=== PATIENT | male | born 1990 | race Caucasian/White ===

== ENCOUNTER 2016-10-13 19:08 | Emergency (ER) | payer OTHER ==
--- NOTE | 2016-10-13 19:28 | ED CLINICAL REPORT ---
Clinical Report - Physicians/Mid Levels [facility] [address] [place] [address] 10/13/2016 19:09 Patient: SAVANNA MORRELL Time Seen: 19:13 Oct 13 2016. Arrived- By private vehicle. Historian- patient. HISTORY OF PRESENT ILLNESS Chief Complaint: SKIN RASH. This started 3 days and is still present. It is described as painful. It has not been generalized in location or located on the right upper extremity or over the right lower extremity. (h/o bleeding from left gluteus, no trauma, h/o similar, with prior surgical excision. NO fevers/ chills. Some odor.). REVIEW OF SYSTEMS No fever, chills, cough, hoarseness or headache. No eye irritation, abdominal pain or diarrhea. All systems otherwise negative, except as recorded above. PAST HISTORY Tetanus immunization status is up-to-date. Problems: Hemorrhoids. Sprain. Tetanus Status. Additional Surgeries: Cyst removal . Hemorrhoidectomy. Medications: Ibuprofen Oral. Allergies: No Known Drug Allergy. SOCIAL HISTORY Smoker- current status unknown (e.cig). No alcohol use or drug use. ADDITIONAL NOTES The nursing notes have been reviewed. PHYSICAL EXAM Vital Signs: 10/13/2016 19:16 BP: 124/78. HR: 80. RR: 18. O2 saturation: 100%. Temp: 98.1 F. Appearance: Alert. ENT: Nose normal. Pharynx normal. Neck: Neck supple. CVS: Normal heart rate and rhythm. Heart sounds normal. Respiratory: No respiratory distress. Breath sounds normal. Skin: Skin warm. Erythema. Tender indurated area (left medial cheek). There is warmth and tenderness. Neuro: Oriented X 3. PROGRESS AND PROCEDURES Incision & Drainage of Abscess: Time: 20:07 Oct 13 2016. Time-out completed immediately before the procedure. The abscess is located (left gluteus). Consent was obtained. Local anesthesia provided using 1% lidocaine with epi. The abscess was incised with a #11 surgical blade. A small amount of pus was drained. Cavity was packed with gauze. Course of Care: afebrile, small I/D of an area, unclear how long present, small area of erythema. Patient is stable. Patient/family counseled. Differential Diagnosis: I considered contact dermatitis, atopic dermatitis, seborrheic dermatitis, nummular dermatitis, chronic eczema, bacterial infection, fungal infection, viral etiology, parasitic infection, cancer and connective tissue disease as a possible cause of rash in this patient. This is a partial list of diagnoses considered. Disposition: Discharged. CLINICAL IMPRESSION Single superficial abscess with incision and drainage (Left Gluteus). INSTRUCTIONS (sitz bath remove packing in shower in 48 hours Follow up with your surgeon). Warnings: Further evaluation is necessary. Prescription Medications: Tylenol with Codeine Tylenol #3 (30 mg / 300 mg) : take 1-2 tablets orally every 6 hours as needed for pain. Dispense fifteen (15). No refill. Substitution is permissible. Bactrim DS 800 mg / 160 mg: take 1 tablet orally every 12 hours for 10 days. No refill. Substitution is permissible. Keflex 500 mg: take 1 capsule orally every 8 hours for 10 days. No refill. Substitution is permissible. OTC Medications: Take OTC medications according to label instructions. Available over the counter. Acetaminophen (available over the counter): take according to label instructions. Motrin (available over the counter): take according to label instructions. Follow-up: Follow up with your doctor in three days. (Electronically signed by Jennifer Kimbrough P.A.-C 10/13/2016 20:08)
--- NOTE | 2016-10-13 19:28 | ED NURSING NOTES ---
Clinical Report - Nurses [facility] [address] [place] [address] 10/13/2016 19:09 Patient: SAVANNA MORRELL TRIAGE Triage time 19:16 Oct 13 2016. Acuity: LEVEL 4. Chief Complaint: SKIN PROBLEM. --19:19 Samm Flores R.N. 19:16 10/13/16. BP: 124/78. HR: 80. RR: 18. O2 saturation: 100%. Temp: 98.1 F. Pain level now 04/20. --19:19 Samm Flores R.N. Weight: 111.1 kg stated. Height/Length: 72 inches Per Patient. BMI: 33.2. --19:18 Samm Flores R.N. Medications Ibuprofen Oral. --19:17 Samm Flores R.N. Allergies No Known Drug Allergy. --19:17 Samm Flores R.N. History Arrived by private vehicle. ( Pt hx diagnosed with cyst, excised 4 years ago. 2days ago noticed a sore develop on his buttocks and begin to bleed.). Reported as located on the perirectal area. Onset. (2). SOCIAL HX: Smoker- current status unknown (e cig). No alcohol use or drug use. --19:19 Samm Flores R.N. PROBLEMS: Hemorrhoids. --19:18 Samm Flores R.N. ADDITIONAL SURGERIES: Cyst removal . Hemorrhoidectomy. --19:18 Samm Flores R.N. Interventions ID band on patient. To treatment room. --19:19 Samm Flores R.N. PHYSICAL ASSESSMENT GENERAL / NEURO / PSYCH: Alert. Appears in pain. Oriented X 4. SKIN: Skin is warm. Skin lesion on the perirectal area. --19:20 Samm lFores R.N. NURSING PROGRESS NOTES Monitoring of patient in place. Call light placed in reach. Side rails up x 1. --19:48 Samm Flores R.N. DISPOSITION / DISCHARGE No learning barriers present. Discharge instructions provided and reviewed with the patient. Reviewed medication(s) information. Patient verbalized understanding. Written instructions provided in German. The patient was discharged by the physician assistant director of nursing. He was discharged home. He left the Emergency Department ambulatory and via private vehicle. Patient driving. ( Pt ambulated on discharge, PA drained wound in orquidea rectal area. Pt verbalized understanding of discharge instructions and follow up care.). --19:50 Samm Flores R.N. 19:48 10/13/16. BP: 127/81. HR: 76. RR: 18. O2 saturation: 100%. Temp: 98.1 F. Pain level now 8/10. --19:50 Samm Flores R.N. Departure time: 1945. --19:50 Samm Flores R.N. Locked/Released at 10/14/2016 1:34 by Samm Flores R.N.
--- NOTE | 2016-10-13 19:28 | ED NURSING NOTES ---
Clinical Report - Nurses [facility] [address] [place] [address] 10/13/2016 19:09 Patient: SAVANNA MORRELL TRIAGE Triage time 19:16 Oct 13 2016. Acuity: LEVEL 4. Chief Complaint: SKIN PROBLEM. --19:19 Samm Flores R.N. 19:16 10/13/16. BP: 124/78. HR: 80. RR: 18. O2 saturation: 100%. Temp: 98.1 F. Pain level now 04/20. --19:19 Samm Flores R.N. Weight: 111.1 kg stated. Height/Length: 72 inches Per Patient. BMI: 33.2. --19:18 Samm Flores R.N. Medications Ibuprofen Oral. --19:17 Samm Flores R.N. Allergies No Known Drug Allergy. --19:17 Samm Flores R.N. History Arrived by private vehicle. ( Pt hx diagnosed with cyst, excised 4 years ago. 2days ago noticed a sore develop on his buttocks and begin to bleed.). Reported as located on the perirectal area. Onset. (2). SOCIAL HX: Smoker- current status unknown (e cig). No alcohol use or drug use. --19:19 Samm Flores R.N. PROBLEMS: Hemorrhoids. --19:18 Samm Flores R.N. ADDITIONAL SURGERIES: Cyst removal . Hemorrhoidectomy. --19:18 Samm Flores R.N. Interventions ID band on patient. To treatment room. --19:19 Samm Flores R.N. PHYSICAL ASSESSMENT GENERAL / NEURO / PSYCH: Alert. Appears in pain. Oriented X 4. SKIN: Skin is warm. Skin lesion on the perirectal area. --19:20 Samm Flores R.N. NURSING PROGRESS NOTES Monitoring of patient in place. Call light placed in reach. Side rails up x 1. --19:48 Samm Flores R.N. DISPOSITION / DISCHARGE No learning barriers present. Discharge instructions provided and reviewed with the patient. Reviewed medication(s) information. Patient verbalized understanding. Written instructions provided in Wolof. The patient was discharged by the physician butcher's assistant. He was discharged home. He left the Emergency Department ambulatory and via private vehicle. Patient driving. ( Pt ambulated on discharge, PA drained wound in orquidea rectal area. Pt verbalized understanding of discharge instructions and follow up care.). --19:50 Samm Flores R.N. 19:48 10/13/16. BP: 127/81. HR: 76. RR: 18. O2 saturation: 100%. Temp: 98.1 F. Pain level now 8/10. --19:50 Smam Flores R.N. Departure time: 1945. --19:50 Samm Flores R.N. Locked/Released at 10/14/2016 1:34 by Samm Flores R.N.
--- NOTE | 2016-10-14 01:34 | ED MED RECONCILIATION SUMMARY ---
Patient: SAVANNA MORRELL Medication Reconciliation Report [facility] VisitID: [id number] [address] [place] [address] 26y, M Registration Date/Time: 10/13/2016 Weight: 111.1 kg Height/Length: 72 in. BMI: 33.2 ALLERGIES: No Known Drug Allergy The patient's Home Medications are listed below: THE FOLLOWING MEDICATIONS NEED TO BE RECONCILED: Ibuprofen Oral The source(s) of the original Home Medication information: Not obtained. The following Medications were given to the patient in the Emergency Department: None. The following Medications were prescribed to the patient: Take OTC medications according to label instructions. Available over the counter. -- Jennifer Kimbrough, P.A.-C Acetaminophen (available over the counter): take according to label instructions. -- Jennifer Kimbrough, P.A.-C Motrin (available over the counter): take according to label instructions. -- Jennfier Kimbrough P.A.-C Tylenol with Codeine Tylenol #3 (30 mg / 300 mg) : take 1-2 tablets orally every 6 hours as needed for pain. Dispense fifteen (15). No refill. Substitution is permissible. -- Jennifer Kimbrough, P.A.-C Bactrim DS 800 mg / 160 mg: take 1 tablet orally every 12 hours for 10 days. No refill. Substitution is permissible. -- Jennifer Kimbrough, P.A.-C Keflex 500 mg: take 1 capsule orally every 8 hours for 10 days. No refill. Substitution is permissible. -- Jennifer Kimbrough, P.A.-C
--- NOTE | 2016-10-14 01:34 | ED MAR SUMMARY ---
..... Medication Administration Record [facility] [address], [place] [id number] Patient: SAVANNA MORRELL Visit ID: [id number] 26y, M Weight: 111.1 kg Height/Length: 72 in BMI: 33.2 ALLERGIES: No Known Drug Allergy
--- NOTE | 2016-10-14 01:34 | ED MAR SUMMARY ---
..... Medication Administration Record [facility] [address] [place], [place] [id number] Patient: SAVANNA MORRELL Visit ID: [id number] 26y, M Weight: 111.1 kg Height/Length: 72 in BMI: 33.2 ALLERGIES: No Known Drug Allergy
--- NOTE | 2016-10-14 01:34 | ED MED RECONCILIATION SUMMARY ---
Patient: SAVANNA MORRELL Medication Reconciliation Report [facility] VisitID: [id number] [address] [place] [address] 26y, M Registration Date/Time: 10/13/2016 Weight: 111.1 kg Height/Length: 72 in. BMI: 33.2 ALLERGIES: No Known Drug Allergy The patient's Home Medications are listed below: THE FOLLOWING MEDICATIONS NEED TO BE RECONCILED: Ibuprofen Oral The source(s) of the original Home Medication information: Not obtained. The following Medications were given to the patient in the Emergency Department: None. The following Medications were prescribed to the patient: Take OTC medications according to label instructions. Available over the counter. -- Jennifer Kimbrough, P.A.-C Acetaminophen (available over the counter): take according to label instructions. -- Jennifer Kimbrough, P.A.-C Motrin (available over the counter): take according to label instructions. -- Jennifer Kimbrough P.A.-C Tylenol with Codeine Tylenol #3 (30 mg / 300 mg) : take 1-2 tablets orally every 6 hours as needed for pain. Dispense fifteen (15). No refill. Substitution is permissible. -- Jennifer Kimbrough, P.A.-C Bactrim DS 800 mg / 160 mg: take 1 tablet orally every 12 hours for 10 days. No refill. Substitution is permissible. -- Jennifer Kimbrough, P.A.-C Keflex 500 mg: take 1 capsule orally every 8 hours for 10 days. No refill. Substitution is permissible. -- Jennifer Kimbrough, P.A.-C
--- NOTE | 2016-10-14 01:34 | ED DISCHARGE INSTRUCTIONS ---
Patient: SAVANNA MORRELL General Instructions [facility] VisitID: [id number] [place] [address] 26y, M Registration Date/Time: 10/13/2016 Single superficial abscess with incision and drainage (Left Gluteus). INSTRUCTIONS (sitz bath remove packing in shower in 48 hours Follow up with your surgeon). Warnings: Further evaluation is necessary. Prescription Medications: Tylenol with Codeine Tylenol #3 (30 mg / 300 mg) : take 1-2 tablets orally every 6 hours as needed for pain. Dispense fifteen (15). No refill. Substitution is permissible. Bactrim DS 800 mg / 160 mg: take 1 tablet orally every 12 hours for 10 days. No refill. Substitution is permissible. Keflex 500 mg: take 1 capsule orally every 8 hours for 10 days. No refill. Substitution is permissible. OTC Medications: Take OTC medications according to label instructions. Available over the counter. Acetaminophen (available over the counter): take according to label instructions. Motrin (available over the counter): take according to label instructions. Follow-up: Follow up with your doctor in three days. ADDITIONAL INFORMATION Abscess [Incision & Drainage] An abscess (sometimes called a boil) occurs when bacteria get trapped under the skin and begin to grow. Pus forms inside the abscess as the body responds to the bacteria. An abscess can occur with an insect bite, ingrown hair, blocked oil gland, pimple, cyst, or puncture wound. Treatment of your abscess has required an incision to drain the pus. If the abscess pocket was large, a gauze packing may have been inserted. This will need to be removed and possibly replaced on your next visit. Antibiotics are not required in the treatment of a simple abscess, unless the infection is spreading into the skin around the wound (known as cellulitis). Healing of the wound will take about one to two weeks depending on the size of the abscess. Healthy tissue will grow from the bottom and sides of the opening until it seals over. Home Care: The wound may drain for the first two days. Cover the wound with a clean dry dressing. If the dressing becomes soaked with blood or pus, change it. If a gauze packing was placed inside the abscess cavity, you may be advised to remove it yourself. You may do this in the shower. Once the packing is removed, you should wash the area in the shower or bath 3 to 4 times a day, until the skin opening has closed. If you were prescribed antibiotics, take them as directed until they are all gone. You may use acetaminophen (Tylenol) or ibuprofen (Motrin, Advil) to control pain, unless another pain medicine was prescribed. [ NOTE: If you have liver disease or ever had a stomach ulcer, talk with your doctor before using these medicines.] Follow Up with your doctor as advised by our staff. If a gauze packing was inserted in your wound, it should be removed in 1-2 days. Check your wound every day for the signs of worsening infection listed below. Get Prompt Medical Attention if any of the following occur: Increasing redness or swelling Red streaks in the skin leading away from the wound Increasing local pain or swelling Continued pus draining from the wound two days after treatment Fever of 100.4F (38C) or higher, or as directed by your healthcare provider Acetaminophen, Codeine Phosphate Oral tablet What is this medicine? ACETAMINOPHEN; CODEINE (a set a TSOHIA milan fen; KOE camelia) is a pain reliever. It is used to treat mild to moderate pain. How should I use this medicine? Take this medicine by mouth with a full glass of water. Follow the directions on the prescription label. If the medicine upsets your stomach, take the medicine with food or milk. Do not take more medicine than you are told to take. Talk to your computational geneticist regarding the use of this medicine in children. Special care may be needed. What side effects may I notice from receiving this medicine? Side effects that you should report to your doctor or health care taker as soon as possible: allergic reactions like skin rash, itching or hives, swelling of the face, lips, or tongue breathing difficulties, wheezing confusion light headedness or fainting spells severe stomach pain yellowing of the skin or the whites of the eyes Side effects that usually do not require medical attention (report to your doctor or health care taker if they continue or are bothersome): dizziness drowsiness nausea, vomiting What may interact with this medicine? alcohol antihistamines benztropine drugs for bladder problems like solifenacin, trospium, oxybutynin, tolterodine, hycosamine, and methscopolamine drugs for breathing problems like ipratropium and tiotropium drugs for certain stomach or intestine problems like propantheline, homatropine methylbromide, glycopyrrolate, atropine, belladonna, and dicyclomine medicines for depression, anxiety, or psychotic disturbances medicines for sleep muscle relaxants naltrexone narcotic medicines (opiates) for pain phenothiazines like perphenazine, thioridazine, chlorpromazine, mesoridazine, fluphenazine, prochlorperazine, promazine, trifluoperazine scopolamine tramadol trihexyphenidyl What if I miss a dose? If you miss a dose, take it as soon as you can. If it is almost time for your next dose, take only that dose. Do not take double or extra doses. Where should I keep my medicine? Keep out of the reach of children. This medicine can be abused. Keep your medicine in a safe place to protect it from theft. Do not share this medicine with anyone. Selling or giving away this medicine is dangerous and against the law. Store at room temperature between 15 and 30 degrees C (59 and 86 degrees F). Protect from light. Keep container tightly closed. Throw away any unused medicine after the expiration date. Discard unused medicine and used packaging carefully. Pets and children can be harmed if they find used or lost packages. What should I tell my health care provider before I take this medicine? They need to know if you have any of these conditions: brain tumor Crohn's disease, inflammatory bowel disease, or ulcerative colitis drink more than 3 alcohol containing drinks per day drug abuse or addiction head injury heart or circulation problems kidney disease or problems going to the bathroom liver disease lung disease, asthma, or breathing problems an unusual or allergic reaction to acetaminophen, codeine, salicylates, other opioid analgesics, other medicines, foods, dyes, or preservatives or trying to get breast-feeding What should I watch for while using this medicine? Tell your doctor or health care taker if your pain does not go away, if it gets worse, or if you have new or a different type of pain. You may develop tolerance to the medication. Tolerance means that you will need a higher dose of the medication for pain relief. Tolerance is normal and is expected if you take the medicine for a long time. Do not suddenly stop taking your medicine because you may develop a severe reaction. Your body becomes used to the medicine. This does NOT mean you are addicted. Addiction is a behavior related to getting and using a drug for a non medical reason. If you have pain, you have a medical reason to take pain medicine. Your doctor will tell you how much medicine to take. If your doctor wants you to stop the medicine, the dose will be slowly lowered over time to avoid any side effects. You may get drowsy or dizzy. Do not drive, use machinery, or do anything that needs mental alertness until you know how this medicine affects you. Do not stand or sit up quickly, especially if you are an older patient. This reduces the risk of dizzy or fainting spells. Alcohol may interfere with the effect of this medicine. Avoid alcoholic drinks. There are different types of narcotic medicines (opiates) for pain. If you take more than one type at the same time, you may have more side effects. Give your health care provider a list of all medicines you use. Your doctor will tell you how much medicine to take. Do not take more medicine than directed. Call emergency for help if you have problems breathing. The medicine will cause constipation. Try to have a bowel movement at least every 2 to 3 days. If you do not have a bowel movement for 3 days, call your doctor or health care taker. Do not take Tylenol (acetaminophen) or medicines that have acetaminophen with this medicine. Too much acetaminophen can be very dangerous. Many nonprescription medicines contain acetaminophen. Always read the labels carefully to avoid taking more acetaminophen. Immediately call your physician or get emergency help if you are breast-feeding and your baby is sleepier than usual, is limp, or has difficulty or breathing. Sulfamethoxazole, Trimethoprim Oral tablet What is this medicine? SULFAMETHOXAZOLE; TRIMETHOPRIM or SMX-TMP (suhl fuh meth OK liliya zohl; trye METH oh prim) is a combination of a sulfonamide antibiotic and a second antibiotic, trimethoprim. It is used to treat or prevent certain kinds of bacterial infections. It will not work for colds, flu, or other viral infections. How should I use this medicine? Take this medicine by mouth with a full glass of water. Follow the directions on the prescription label. Take your medicine at regular intervals. Do not take it more often than directed. Do not skip doses or stop your medicine early. Talk to your computational geneticist regarding the use of this medicine in children. Special care may be needed. This medicine has been used in children as young as 2 months of age. What side effects may I notice from receiving this medicine? Side effects that you should report to your doctor or health care taker as soon as possible: allergic reactions like skin rash or hives, swelling of the face, lips, or tongue breathing problems fever or chills, sore throat irregular heartbeat, chest pain joint or muscle pain pain or difficulty passing urine red pinpoint spots on skin redness, blistering, peeling or loosening of the skin, including inside the mouth unusual bleeding or bruising unusually weak or tired yellowing of the eyes or skin Side effects that usually do not require medical attention (report to your doctor or health care taker if they continue or are bothersome): diarrhea dizziness headache loss of appetite nausea, vomiting nervousness What may interact with this medicine? Do not take this medicine with any of the following medications: aminobenzoate potassium dofetilide metronidazole This medicine may also interact with the following medications: LAINE inhibitors like benazepril, enalapril, lisinopril, and ramipril cyclosporine digoxin diuretics indomethacin medicines for diabetes methenamine methotrexate phenytoin potassium supplements pyrimethamine sulfinpyrazone tricyclic antidepressants warfarin What if I miss a dose? If you miss a dose, take it as soon as you can. If it is almost time for your next dose, take only that dose. Do not take double or extra doses. Where should I keep my medicine? Keep out of the reach of children. Store at room temperature between 20 to 25 degrees C (68 to 77 degrees F). Protect from light. Throw away any unused medicine after the expiration date. What should I tell my health care provider before I take this medicine? They need to know if you have any of these conditions: anemia asthma being treated with anticonvulsants if you frequently drink alcohol containing drinks kidney disease liver disease low level of folic acid or rzrzsae-0-vrakuvhym dehydrogenase poor nutrition or malabsorption porphyria severe allergies thyroid disorder an unusual or allergic reaction to sulfamethoxazole, trimethoprim, sulfa drugs, other medicines, foods, dyes, or preservatives or trying to get breast-feeding What should I watch for while using this medicine? Tell your doctor or health care taker if your symptoms do not improve. Drink several glasses of water a day to reduce the risk of kidney problems. Do not treat diarrhea with over the counter products. Contact your doctor if you have diarrhea that lasts more than 2 days or if it is severe and watery. This medicine can make you more sensitive to the sun. Keep out of the sun. If you cannot avoid being in the sun, wear protective clothing and use a sunscreen. Do not use sun lamps or tanning beds/booths. You have been given the following additional information: Abscess, Incision And Drainage Acetaminophen, Codeine Phosphate Oral tablet Sulfamethoxazole, Trimethoprim Oral tablet (Electronically signed by Jennifer Kimbrough P.A.-C 10/13/2016 20:08)
== END 2016-10-13 19:40 | disposition home or self-care (01) ==
LOC: ED SRH 19:08
DX: L02.31 Cutaneous abscess of buttock (principal)

== ENCOUNTER 2017-01-23 12:04 | Emergency (ER) | payer OTHER ==
--- NOTE | 2017-01-23 13:19 | ED CLINICAL REPORT ---
Clinical Report - Physicians/Mid Levels [facility] [address] [place] [address] 01/23/2017 12:06 Patient: SAVANNA MORRELL Time Seen: 12:33 Jan 23 2017. Arrived- By private vehicle. Historian- patient. HISTORY OF PRESENT ILLNESS Chief Complaint: RECTAL BLEEDING. 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 PAST HISTORY Abscess. Hemorrhoids. Sprain. Tetanus Status. --12:17 Babar Dong RÁngelN. ADDITIONAL SURGERIES: Pilonidal Cyst removal . Hemorrhoidectomy. Medications: None. Allergies: No Known Drug Allergy. SOCIAL HISTORY Heavy tobacco smoker (cigarette)- 1 pack per day. No alcohol use or drug use. CLINICAL IMPRESSION Left AMA. (Electronically signed by Vincenzo Meyers MD 01/24/2017 20:50)
--- NOTE | 2017-01-23 13:19 | ED ORDER SUMMARY ---
..... Patient: SAVANNA MORRELL OrderSheet [facility] VisitID: [id number] [address] [place] [address] 27y, M Registration Date/Time: 01/23/2017 ORDER SHEET Weight: 99.7 kg (stated) Allergies: No Known Drug Allergy GENERAL ORDERS: CBC w Diff Urgent (13:01/23/2017 Arnoldo PANTOJA) (Ack 13:11 LNations ER Tech1) (Cancelled: Patient Codsjsp28:30 JBoardley R.N.) CMP Urgent (13:01/23/2017 Arnoldo PANTOJA) (Ack 13:11 LNations ER Tech1) (Cancelled: Patient Wbszugf39:30 JBoardlemagdalena R.N.) PCT (Procalcitonin) Urgent (13:01/23/2017 Arnoldo PANTOJA) (Ack 13:11 LNations ER Tech1) (Cancelled: Patient Fcfbeby48:30 VALERI[address]ley R.N.) CT Abd/Pel w Cont (No) (N/A) (to include the rectum and anus and associated ssoft tissues. ) Urgent (13:01/23/2017 Arnoldo PANTOJA) (Ack 13:11 LNations ER Tech1) (Cancelled: Patient Left13:25 Hailee) MEDICATION ORDERS: IV FLUIDS: IV NS : initial bolus none -, then 250 mL/hr for 4h (NOW); Routine (13:01/23/2017 Arnoldo PANTOJA) (Ack 13:12 Daylin R.N.) (Cancelled: Patient Ojienbj22:30 JBoardley R.N.) ORDER SHEET NOTES: [Electronically signed by Babar Dong R.N. (14:31 01/23/2017)] [Electronically signed by Vincenzo Meyers MD (20:50 01/24/2017)] [Electronically locked/signed by Babar Dong R.N. (14:31 01/23/2017)]
--- NOTE | 2017-01-23 13:19 | ED CLINICAL REPORT ---
Clinical Report - Physicians/Mid Levels [facility] [address] [place] [address] 01/23/2017 12:06 Patient: SAVANNA MORRELL Time Seen: 12:33 Jan 23 2017. Arrived- By private vehicle. Historian- patient. HISTORY OF PRESENT ILLNESS Chief Complaint: RECTAL BLEEDING. 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 PAST HISTORY Abscess. Hemorrhoids. Sprain. Tetanus Status. --12:17 Babar Dong RÁngelN. ADDITIONAL SURGERIES: Pilonidal Cyst removal . Hemorrhoidectomy. Medications: None. Allergies: No Known Drug Allergy. SOCIAL HISTORY Heavy tobacco smoker (cigarette)- 1 pack per day. No alcohol use or drug use. CLINICAL IMPRESSION Left AMA. (Electronically signed by Vincenzo Meyers MD 01/24/2017 20:50)
--- NOTE | 2017-01-23 13:19 | ED NURSING NOTES ---
Clinical Report - Nurses [facility] [address] [place] [address] 01/23/2017 12:06 Patient: SAVANNA MORRELL TRIAGE Triage time 12:13. Acuity: LEVEL 4. Chief Complaint: RECTAL PAIN. 12:13 01/23/17. 12:13 01/23/17. Alert. No acute distress. ( Pt states he has a cyst in the rectal area, this was I and D around October. Pt presents today with an enlargement of this cyst or it is reoccurring. Pt also states that he might have blood in his stool. Pt was suppose to follow up with his PCP regarding this and never did.). SEPSIS SCREEN: Sepsis Screen. Negative (no infection suspected/documented). JAME COMA SCORE: Jaem Coma Scale: 15- eyes open spontaneously (4); best verbal response- oriented x 4 (5); best motor response- obeys commands (6). --12:18 Babar Dong R.N. 12:12 01/23/17. BP: 127/78. HR: 92. RR: 18. O2 saturation: 99% on room air. Temp: 98 F. --12:18 Babar Dong R.N. Weight: 99.7 kg stated. Height/Length: 71 inches Per Patient. BMI: 30.7. --12:15 Babar Dong R.N. Medications None. --12:16 Babar Dong R.N. Medication/allergy information source: the patient. --12:18 Babar Dong R.N. Allergies No Known Drug Allergy. --12:16 Babar Dong R.N. History Arrived by private vehicle. Historian: patient. Unaccompanied. Primary physician (SHAYNA). 12:13 01/23/17. Treatment PHLEBOTOMY DIRECTOR: None. PAST MEDICAL HX: Immunizations: up-to-date. SOCIAL HX: Current every day heavy tobacco smoker (cigarette)- 1 pack per day. Never smoker. No alcohol use or drug use. No infectious disease exposure. ABUSE ASSESSMENT: No report of abuse. FALL RISK ASSESSMENT: Fall risk assessment completed. No fall risk identified. NUTRITIONAL RISK ASSESSMENT: The nutritional risk assessment revealed no deficiencies. FUNCTIONAL ASSESSMENT: Functional assessment: no impairments noted. LEARNING NEEDS ASSESSMENT: The learning needs assessment revealed no barriers. SKIN INTEGRITY ASSESSMENT: Skin integrity risk assessment completed. No skin integrity risk identified. --12:18 Babar Dong R.N. PROBLEMS: Abscess. Hemorrhoids. Sprain. Tetanus Status. --12:17 Babar Dong R.N. ADDITIONAL SURGERIES: Cyst removal . Hemorrhoidectomy. --12:17 Babar Dong R.N. Assessment 12:01/23/17. --12:18 Babar Dong R.N. Interventions 12:01/23/17. 12:01/23/17. ID and allergy band on patient. To treatment room. --12:18 Babar Dong R.N. PHYSICAL ASSESSMENT 12:17 01/23/17. Ambulatory to room. GENERAL / NEURO / PSYCH: Alert. Oriented X 4. Appears in no acute distress. RESPIRATORY: Respirations not labored. CVS: Capillary refill less than 2 seconds. SKIN: Skin is warm and dry. --12:17 Babar Dong R.N. NURSING PROGRESS NOTES 12:01/23/17. Call light placed in reach. Side rails up x 2. Bed placed in lowest position. Brakes of bed on. Patient ready for evaluation- chart flagged and notification provided. --12:18 Babar Dong R.N. 12:18 01/23/17. The plan of care for this patient has been created. Patient gowned. Head of bed elevated. --12:18 Babar Dong R.N. DISPOSITION / DISCHARGE 13:20 01/23/17. The patient left the Emergency Department against medical advice and without completion of treatment; patient was unaccompanied. The patient appears to be alert, oriented x4, coherent and in no acute distress. The patient notified the ED staff prior to leaving the department and stated is leaving the ED due to personal reasons (Has to drop off car to family, pt states he will be back in 15 minutes). Notified the ED physician and charge nurse of patient departure. Prior to leaving the ED, he was advised to stay for completion of treatment and return if needed. He was informed of the risks of leaving and verbalized understanding of these risks. Patient signed form prior to leaving. He left the Emergency Department ambulatory and via private vehicle. --13:20 Babar Dong R.N. 13:01/23/17. --13:21 Babar Dong R.N. 13:20 01/23/17. BP: unable to obtain. HR: unable to obtain. RR: unable to obtain. O2 saturation: unable to obtain. Temp: unable to obtain. Additional comments: Refused DC vitals stating he has to go. --13:21 Babar Dong R.N. 13:01/23/17. Departure time: :. --13:21 Babar Dong R.N. Locked/Released at 01/23/2017 14:31 by Babar Dong R.N.
--- NOTE | 2017-01-23 13:19 | ED ORDER SUMMARY ---
..... Patient: SAVANNA MORRELL OrderSheet [facility] VisitID: [id number] [address] [place] [address] 27y, M Registration Date/Time: 01/23/2017 ORDER SHEET Weight: 99.7 kg (stated) Allergies: No Known Drug Allergy GENERAL ORDERS: CBC w Diff Urgent (13:01/23/2017 Arnoldo PANTOJA) (Ack 13:11 LNations ER Tech1) (Cancelled: Patient Vckdgwk81:30 JBoardley R.N.) CMP Urgent (13:01/23/2017 Arnoldo PANTOJA) (Ack 13:11 LNations ER Tech1) (Cancelled: Patient Ewebwfd31:30 JBoardlemagdalena R.N.) PCT (Procalcitonin) Urgent (13:01/23/2017 Arnoldo PANTOJA) (Ack 13:11 LNations ER Tech1) (Cancelled: Patient Rrstfhj58:30 VALERIY[address]ley R.N.) CT Abd/Pel w Cont (No) (N/A) (to include the rectum and anus and associated ssoft tissues. ) Urgent (13:01/23/2017 Arnoldo PANTOJA) (Ack 13:11 LNations ER Tech1) (Cancelled: Patient Left13:25 Hailee) MEDICATION ORDERS: IV FLUIDS: IV NS : initial bolus none -, then 250 mL/hr for 4h (NOW); Routine (13:01/23/2017 Arnoldo PANTOJA) (Ack 13:12 Daylin R.N.) (Cancelled: Patient Iyovcrr16:30 JBoardley R.N.) ORDER SHEET NOTES: [Electronically signed by Babar Dong R.N. (14:31 01/23/2017)] [Electronically signed by Vincenzo Meyers MD (20:50 01/24/2017)] [Electronically locked/signed by Babar Dong R.N. (14:31 01/23/2017)]
--- NOTE | 2017-01-24 20:50 | ED DISCHARGE INSTRUCTIONS ---
Patient: SAVANNA MORRELL General Instructions [facility] VisitID: [id number] [address] [place] [address] 27y, M Registration Date/Time: 01/23/2017 Left AMA. (Electronically signed by Vincenzo Meyers MD 01/24/2017 20:50)
--- NOTE | 2017-01-24 20:50 | ED MAR SUMMARY ---
..... Medication Administration Record [facility] [address] [place], [place] [id number] Patient: SAVANNA MORRELL Visit ID: [id number] 27y, M Weight: 99.7 kg Height/Length: 71 in BMI: 30.7 ALLERGIES: No Known Drug Allergy
--- NOTE | 2017-01-24 20:50 | ED MED RECONCILIATION SUMMARY ---
Patient: SAVANNA MORRELL Medication Reconciliation Report [facility] VisitID: [id number] [address] [address] 27y, M Registration Date/Time: 01/23/2017 Weight: 99.7 kg Height/Length: 71 in. BMI: 30.7 ALLERGIES: No Known Drug Allergy The patient's Home Medications are listed below: NONE. The source(s) of the original Home Medication information: patient The following Medications were given to the patient in the Emergency Department: None. The following Medications were prescribed to the patient: None.
--- NOTE | 2017-01-24 20:50 | ED MED RECONCILIATION SUMMARY ---
Patient: SAVANNA MORRELL Medication Reconciliation Report [facility] VisitID: [id number] [address] [place] [address] 27y, M Registration Date/Time: 01/23/2017 Weight: 99.7 kg Height/Length: 71 in. BMI: 30.7 ALLERGIES: No Known Drug Allergy The patient's Home Medications are listed below: NONE. The source(s) of the original Home Medication information: patient The following Medications were given to the patient in the Emergency Department: None. The following Medications were prescribed to the patient: None.
--- NOTE | 2017-01-24 20:50 | ED DISCHARGE INSTRUCTIONS ---
Patient: SAVANNA MORRELL General Instructions [facility] VisitID: [id number] [address] [place] [address] 27y, M Registration Date/Time: 01/23/2017 Left AMA. (Electronically signed by Vincenzo Meyers MD 01/24/2017 20:50)
--- NOTE | 2017-01-24 20:50 | ED MAR SUMMARY ---
..... Medication Administration Record [facility] [address] [place], [place] [id number] Patient: SAVANNA MORRELL Visit ID: [id number] 27y, M Weight: 99.7 kg Height/Length: 71 in BMI: 30.7 ALLERGIES: No Known Drug Allergy
== END 2017-01-23 13:21 | disposition left against medical advice (07) ==
LOC: ED SRH 12:04
DX: Z53.21 Procedure and treatment not carried out due to patient leaving prior to being seen by health care provider (principal)
CPT/HCPCS: 91585; 93004; 95059

== ENCOUNTER 2017-01-23 13:48 | Emergency (ER) | payer OTHER ==
--- NOTE | 2017-01-23 15:34 | DIAGNOSTIC IMAGING REPORT ---
PROCEDURE: CT ABD/PELVIS WITH CONTRAST CLINICAL INDICATION: Perirectal pain. Initial encounter. TECHNIQUE: 125 ml of Isovue 300 were injected intravenously and axial images were obtained of the entire abdomen and pelvis with sagittal and coronal reformations. COMPARISON: None. FINDINGS: ABDOMEN: Lung bases are clear. Heart size is normal. Contracted gallbladder. Liver, pancreas, spleen, adrenal glands and kidneys are normal. Normal abdominal aorta. Nonspecific bowel gas pattern. PELVIS: 2.3 x 1.2 cm subcutaneous soft tissue density along the medial aspect of the left buttock at the level of the coccyx , with a sinus tract extending anteriorly toward the tip of the coccyx. Normal prostate and bladder. Normal appendix. Nonspecific bowel gas pattern. Mild left inguinal adenopathy. Bones are unremarkable. IMPRESSION: 1. 2.3 x 1.2 cm subcutaneous inflammatory mass along the medial aspect of the left buttock suggestive of a phlegmon with a sinus tract extending anteriorly. 2. Results discussed with Dr. Meyers All CT scans at this facility use dose modulation, iterative reconstruction, and/or weight-based dosing when appropriate to reduce radiation dose to as low as reasonably achievable.
--- NOTE | 2017-01-23 18:23 | ED ORDER SUMMARY ---
..... Patient: SAVANNA MORRELL OrderSheet [facility] VisitID: [id number] [address] [place] [address] 27y, M Registration Date/Time: 01/23/2017 ORDER SHEET Weight: 99.7 kg (stated) Allergies: No Known Drug Allergy GENERAL ORDERS: CBC w Diff Urgent (14:00 01/23/2017 Arnoldo PANTOJA) (Ack 14:03 Hailee) (14:10 JBoardley R.N.) CMP Urgent (14:01/23/2017 Arnoldo PANTOJA) (Ack 14:03 Hailee) (14:10 JBoardley R.N.) PCT (Procalcitonin) Urgent (14:01/23/2017 Arnoldo PANTOAJ) (Ack 14:03 Hailee) (14:10 JBoardley R.N.) CT Abd/Pel w Cont (No) (N/A) (go thru rectum anus and orquidea-rectal soft tissue. ) Urgent (14:02 01/23/2017 Arnoldo PANTOJA) (Ack 14:03 Hailee) (14:56 JBoardley R.N.) CRP Urgent (14:04 01/23/2017 Arnoldo PANTOJA) (Ack 14:05 Hailee) (14:10 JBoardley R.N.) MEDICATION ORDERS: IV FLUIDS: IV NS : initial bolus none -, then 250 mL/hr for 4h (NOW); Routine (14:00 01/23/2017 Arnoldo PANTOJA) (Ack 14:03 VALERIYoardley R.N.) (14:10 JBoardley R.N.) Vancomycin IV 25 mg/kg (NOW) (15:40 01/23/2017 Arnoldo PANTOJA) (Ack 15:43 Wenyd R.N.) (16:31 Daylin R.N.) Invanz IV 1 gm (NOW) (15:40 01/23/2017 Arnoldo PANTOJA) (Ack 15:43 Wendy R.N.) (16:13 Wendy R.N.) Demerol IV 12.5 mg (NOW) (15:47 01/23/2017 Arnoldo PANTOJA) (Ack 16:01 Daylin R.N.) (16:30 Daylin R.N.) Demerol IV 12.5 mg (NOW) (17:34 01/23/2017 Arnoldo PANTOJA) (17:43 Daylin R.N.) ORDER SHEET NOTES: [Electronically signed by Babar Dong R.N. (18:51 01/23/2017)] [Electronically signed by Vincenzo Meyers MD (08:06 01/25/2017)] [Electronically locked/signed by Babar Dong R.N. (18:51 01/23/2017)]
--- NOTE | 2017-01-23 18:23 | ED CLINICAL REPORT ---
Clinical Report - Physicians/Mid Levels [facility] [address] [place] [address] 01/23/2017 13:47 [id number] Time Seen: 13:59 Jan 23 2017. Arrived- By private vehicle. Historian- patient. CPT: ER phys charges level 4 (#[id number]). HISTORY OF PRESENT ILLNESS Chief Complaint: RECTAL BLEEDING and PAIN. 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 (One episode of rectal blood today.). Is still present (worse). The patient has had rectal bleeding and pain but not had hard stools. No constipation, nausea, vomiting, diarrhea or abdominal pain. Similar symptoms previously: As bad. Diagnosis: hemorrhoids. Recent medical care: Not recently seen/assessed. REVIEW OF SYSTEMS No dizziness, fainting episodes, weakness, fever or sore throat. No cough, difficulty breathing, chest pain, hematuria or skin rash. No enlarged lymph nodes, chills or joint pain. All systems otherwise negative, except as recorded above. PAST HISTORY Pilonidal cyst and hemorrhoid surgery 5 years ago. Medications: None. Allergies: No Known Drug Allergy. SOCIAL HISTORY Heavy tobacco smoker (cigarette)- less than 1 pack per day. No alcohol use or drug use. ADDITIONAL NOTES The nursing notes have been reviewed. PHYSICAL EXAM Vital Signs: 01/23/2017 13:50 BP: 132/78. HR: 90. RR: 16. O2 saturation: 96%. Temp: 98.4 F. Appearance: Alert. Anxious. Appears to be in pain. Patient in moderate distress. Eyes: Eyes normal inspection. ENT: Pharynx normal. Neck: Normal inspection. CVS: Normal heart rate and rhythm. Heart sounds normal. Respiratory: No respiratory distress. Breath sounds normal. Abdomen: Soft and nontender. Back: Normal inspection. Rectal: (Pilonidal cyst , upper left buttock. There is evidence of a sinus tract exit site or separate abscess just above the anus. This abscess has ruptured and there is a purulent-bloody discharge on the patient. There area is quite tender to any palpation.). Skin: Skin warm. Normal skin color. No rash. Neuro: Oriented X 3. No motor deficit. No sensory deficit. LABS, X-RAYS, AND EKG Pelvic CT: perirectal phegmon. Abscess has drained. No extension into deep space of pelvis. Pelvic CT performed with IV contrast. The study was independently viewed by me, interpreted by the radiologist and discussed with the radiologist. Laboratory Tests: CMP: (LB: 01/23/2017 13:45) ( MsgRcvd 01/23/2017 15:25) Final results Test Result Flag Units (Reference) GLUCOSE 115 H mg/dL (70-110) BUN 16 mg/dL (7-18) CREATININE 1.1 mg/dL (0.6-1.3) Estimated GFR >60 mL/min Estimated GFR- >60 mL/min Note: Persistent reduction over 3 months in eGFR<60 mL/min/1.73 m2 defines CKD. Patients with eGFR values>=60 mL/min/1.73 m2 may also have CKD if evidence ofpersistent proteinuria. Additional information may be foundat www.kidney.org. SODIUM 144 mmol/L (136-145) POTASSIUM 3.9 mmol/L (3.5-5.1) CHLORIDE 104 mmol/L (98-107) CARBON DIOXIDE 28 mmol/L (21-32) CALCIUM 8.9 mg/dL (8.5-10.1) TOTAL PROTEIN 8.0 g/dL (6.4-8.2) ALBUMIN 4.0 g/dL (3.3-5.0) BILIRUBIN, TOTAL 0.3 mg/dL (0.0-1.0) ALKALINE PHOSPHATASE 76 U/L (46-116) AST (SGOT) 10 L U/L (15-37) ALT (SGPT) 22 U/L (12-78) . PROGRESS AND PROCEDURES Course of Care: IV NS Invanz 1g IV Vancomycin 25 mg /kg Lab problems with computer so all lab not on T-system. CBC reported as normal. PCT negative CRP negative. Discussed case with on-call health care provider, (Iker). Reviewed test results. Agreed upon treatment plan. Health care provider will see patient in office. Patient/family counseled. Disposition: Discharged. Condition: stable. CLINICAL IMPRESSION Perirectal , pilonidal cyst with sinus tract, abscess and drainage. INSTRUCTIONS Drink plenty of fluids. (Sitz bath 3 times a day Donut pillow to keep pressure off the area. Gauze dressing 4 times a day.). Warnings: Further evaluation is necessary. Prescription Medications: Zofran (orally disintegrating tablets) 4 mg: take 1 orally every 4 hours as needed for nausea. Dispense ten (10). No refill. Augmentin 875 mg: take 1 tablet orally every 12 hours for 7 days. Dispense fourteen (14). No refills. Substitution is permissible. Trimethoprim-Sulfamethoxazole DS: take 1 tablet orally every 12 hours for 7 days. Dispense fourteen (14). No refills. Oxycodone/APAP 5 mg/325 mg: take 1-2 tablets orally every 6 hours as needed for pain. Dispense twenty (20). No refill. Understanding of the discharge instructions verbalized by patient and family. Discharge instructions reviewed with and understanding was verbalized by spouse. Follow-up with: Jason Dong MD, General Surgeon, , [facility], [address] [place] [address] Follow up in three days. Call for the next available appointment. (Electronically signed by Vincenzo Meyers MD 01/25/2017 8:06)
--- NOTE | 2017-01-23 18:23 | ED NURSING NOTES ---
Clinical Report - Nurses [facility] [address] [place] [address] 01/23/2017 13:47 Patient: SAVANNA MORRELL TRIAGE Triage time 1350. Acuity: LEVEL 3. Chief Complaint: BOIL and . Pt was seen ealier today for same, had to drop off children, is back in for tx. --14:01 Vanesa Turpin R.N. 13:50 01/23/17. BP: 132/78. HR: 90. RR: 16. O2 saturation: 96% on room air. Temp: 98.4 F. --14:01 Vanesa Turpin R.N. Acuity: LEVEL 3. --14:40 Baabr Dong R.N. Weight: 99.7 kg stated. Height/Length: 71 inches Per Patient. BMI: 30.7. --13:57 Vanesa Turpin R.N. Medications None. --13:58 Vanesa Turpin R.N. Allergies No Known Drug Allergy. --13:58 Vanesa Turpin R.N. History Arrived by private vehicle. Historian: patient. Unaccompanied. Reported as (rectal area). SOCIAL HX: Heavy tobacco smoker (cigarette)- less than 1 pack per day. No alcohol use or drug use. --14:01 Vanesa Turpin R.N. PROBLEMS: Abscess. Hemorrhoids. Sprain. Tetanus Status. --14:00 Vanesa Turpin R.N. ADDITIONAL SURGERIES: Cyst removal . Hemorrhoidectomy. --14:00 Vanesa Turpin R.N. Interventions ID band on patient. To treatment room. --14:01 Vanesa Turpin R.N. PHYSICAL ASSESSMENT 13:50. Ambulatory to room. Patient gowned. GENERAL / NEURO / PSYCH: Alert. The patient does not appear to be in acute distress. Oriented X 4. HEENT: Mucous membranes are pink. RESPIRATORY: Respirations not labored. CVS: Capillary refill less than 2 seconds. SKIN: Skin is intact, warm and dry. --14:02 Vanesa Turpin R.N. NURSING PROGRESS NOTES 13:50. Patient gowned. Head of bed elevated. Reassurance given. Patient identifiers checked. Call light placed in reach. Side rails up. Bed placed in lowest position. Patient ready for evaluation- chart flagged. --14:01 Vanesa Turpin R.N. 14:02 01/23/17. Care transferred and report given (Babar Cadet, EDRN). --14:02 Vanesa Turpin R.N. 14:10 01/23/2017 Site #1 started via IV in the left antecubital space with an 20g angiocath, with aseptic technique and good blood return; one attempt. Blood drawn: rainbow set. Labeled in the presence of the patient and sent to the lab. Saline lock flushed with 10 mL saline. --14:10 Babar Dong R.N. 14:10 01/23/2017 Started bag #1 1000 mL IV Fluids IV NS (Saline); at 250 mL/hr over 4 hour(s) via site #1. Allergies verified and confirmed 5 rights. IV patency established. IV site checked: no pain, redness, or swelling. IV flushed thoroughly pre- and post-medication administration. Completed per protocol. --14:10 Babar Dong R.N. 14:12 01/23/17. Patient informed about reason for wait and about plan of care. --14:12 aBbar Dong R.N. 14:39 01/23/17. BP: 124/77. HR: 71. RR: 14. O2 saturation: 99% on room air. --14:39 Babar Dong R.N. 14:39 01/23/17. --14:39 Babar Dong R.N. 14:39 01/23/17. Patient waiting for CT to be done. --14:39 Babar Dong R.N. 14:41 01/23/17. Patient transported to CT by stretcher with tech. --14:41 Babar Dong R.N. 14:56 05/15/17. Patient returned from CT by stretcher with tech. --14:56 Babar Dong R.N. 14:57 01/23/17. Patient waiting for diagnostic study result. --14:57 Babar Dong R.N. 15:43 meds faxed to pharmacy. --15:43 Mariel Nichols R.N. 16:13 01/23/2017 Invanz IVP 1 gm given over 30 minute(s) via site #1. Allergies verified and confirmed 5 rights. IV patency established. IV site checked: no pain, redness, or swelling. IV flushed thoroughly pre- and post-medication administration. IVP given by RN. --16:13 Mariel Nichols R.N. 16:30 01/23/2017 Demerol (Meperidine HCl) IVP 12.5 mg given over 2 minute(s) via site #1. Allergies verified and confirmed 5 rights. IV patency established. IV site checked: no pain, redness, or swelling. IV flushed thoroughly pre- and post-medication administration. IVP given by RN. --16:30 Babar Dong R.N. 16:31 01/23/2017 Started 2 gm of Vancomycin IVPB in bag #1 500 mL; at 250 mL/hr over 2 hour(s) via site #1; Allergies verified and confirmed 5 rights. IV patency established. IV site checked: no pain, redness, or swelling. IV flushed thoroughly pre- and post-medication administration. Completed per protocol. --16:31 Babar Dong R.N. 16:33 01/23/17. BP: 117/72. HR: 78. RR: 16. O2 saturation: 99% on room air. Temp: 98.2 F (oral). --16:33 Babar Dong R.N. 16:33 01/23/17. --16:33 Babar Dong R.N. 16:40 01/23/17. Patient informed about reason for wait and about plan of care (Abx to complete). --16:40 Babar Dong R.N. 16:40 01/23/17. Reassessment after medication administered. He has had no adverse reaction. Overall patient status- he states feels better. --16:40 Babar Dong R.N. 17:31 01/23/17. BP: 109/58. HR: 89. RR: 15. O2 saturation: 100% on room air. Temp: 98.2 F (oral). Pain level now: 01/18. --17:32 Babar Dong R.N. 17:31 01/23/17. --17:32 Babar Dong R.N. 17:43 01/23/2017 Demerol (Meperidine HCl) IVP 12.5 mg given over 2 minute(s) via site #1. Allergies verified and confirmed 5 rights. IV patency established. IV site checked: no pain, redness, or swelling. IV flushed thoroughly pre- and post-medication administration. IVP given by RN. --17:43 Babar Dong R.N. 17:45 01/23/17. ( Gave patient a snack, pt to be discharged after abx completed). --17:45 Babar Dong R.N. 18:35 01/23/2017 IV Fluids IV NS Discontinued: bag #1 infused. Total amount infused: 1000 mL. IV patency established. IV site checked: no pain, redness, or swelling. IV flushed thoroughly. --18:45 Babar Dong R.N. 18:43 01/23/2017 Vancomycin IVPB Discontinued: infused. Total amount infused: 500 mL. IV patency established. IV site checked: no pain, redness, or swelling. IV flushed thoroughly. --18:43 Babar Dong R.N. DISPOSITION / DISCHARGE 18:44 01/23/2017 Site #1 removed upon discharge. Catheter intact. Bandaid applied. --18:44 Babar Dong R.N. 18:45 01/23/17. Condition at departure: improved. The goals identified in the patient's plan of care were met. No learning barriers present. Discharge instructions provided and reviewed with the patient. Reviewed warnings. Reviewed medication(s). Treatments reviewed. Reviewed referral to a surgeon. Patient verbalized understanding. Written instructions provided in Arabic. The patient was discharged by the physician. He was discharged home and accompanied by family. He left the Emergency Department ambulatory and via private vehicle. Family member driving. FALL RISK ASSESSMENT: Fall risk assessment completed. No fall risk identified. --18:45 Babar Dong R.N. 18:44 01/23/17. BP: 107/61. HR: 80. RR: 14. O2 saturation: 100% on room air. Temp: 98.2 F (oral). Pain level now: 10/21. --18:45 Babar Dong R.N. 18:45 01/23/17. Departure time: 18:45. --18:45 Babar Dong R.N. Locked/Released at 01/23/2017 18:51 by Babar Dong R.N.
--- NOTE | 2017-01-23 18:23 | ED CLINICAL REPORT ---
Clinical Report - Physicians/Mid Levels [facility] [address] [place] [address] 01/23/2017 13:47 [id number] Time Seen: 13:59 Jan 23 2017. Arrived- By private vehicle. Historian- patient. CPT: ER phys charges level 4 (#[id number]). HISTORY OF PRESENT ILLNESS Chief Complaint: RECTAL BLEEDING and PAIN. 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 (One episode of rectal blood today.). Is still present (worse). The patient has had rectal bleeding and pain but not had hard stools. No constipation, nausea, vomiting, diarrhea or abdominal pain. Similar symptoms previously: As bad. Diagnosis: hemorrhoids. Recent medical care: Not recently seen/assessed. REVIEW OF SYSTEMS No dizziness, fainting episodes, weakness, fever or sore throat. No cough, difficulty breathing, chest pain, hematuria or skin rash. No enlarged lymph nodes, chills or joint pain. All systems otherwise negative, except as recorded above. PAST HISTORY Pilonidal cyst and hemorrhoid surgery 5 years ago. Medications: None. Allergies: No Known Drug Allergy. SOCIAL HISTORY Heavy tobacco smoker (cigarette)- less than 1 pack per day. No alcohol use or drug use. ADDITIONAL NOTES The nursing notes have been reviewed. PHYSICAL EXAM Vital Signs: 01/23/2017 13:50 BP: 132/78. HR: 90. RR: 16. O2 saturation: 96%. Temp: 98.4 F. Appearance: Alert. Anxious. Appears to be in pain. Patient in moderate distress. Eyes: Eyes normal inspection. ENT: Pharynx normal. Neck: Normal inspection. CVS: Normal heart rate and rhythm. Heart sounds normal. Respiratory: No respiratory distress. Breath sounds normal. Abdomen: Soft and nontender. Back: Normal inspection. Rectal: (Pilonidal cyst , upper left buttock. There is evidence of a sinus tract exit site or separate abscess just above the anus. This abscess has ruptured and there is a purulent-bloody discharge on the patient. There area is quite tender to any palpation.). Skin: Skin warm. Normal skin color. No rash. Neuro: Oriented X 3. No motor deficit. No sensory deficit. LABS, X-RAYS, AND EKG Pelvic CT: perirectal phegmon. Abscess has drained. No extension into deep space of pelvis. Pelvic CT performed with IV contrast. The study was independently viewed by me, interpreted by the radiologist and discussed with the radiologist. Laboratory Tests: CMP: (LB: 01/23/2017 13:45) ( MsgRcvd 01/23/2017 15:25) Final results Test Result Flag Units (Reference) GLUCOSE 115 H mg/dL (70-110) BUN 16 mg/dL (7-18) CREATININE 1.1 mg/dL (0.6-1.3) Estimated GFR >60 mL/min Estimated GFR- >60 mL/min Note: Persistent reduction over 3 months in eGFR<60 mL/min/1.73 m2 defines CKD. Patients with eGFR values>=60 mL/min/1.73 m2 may also have CKD if evidence ofpersistent proteinuria. Additional information may be foundat www.kidney.org. SODIUM 144 mmol/L (136-145) POTASSIUM 3.9 mmol/L (3.5-5.1) CHLORIDE 104 mmol/L (98-107) CARBON DIOXIDE 28 mmol/L (21-32) CALCIUM 8.9 mg/dL (8.5-10.1) TOTAL PROTEIN 8.0 g/dL (6.4-8.2) ALBUMIN 4.0 g/dL (3.3-5.0) BILIRUBIN, TOTAL 0.3 mg/dL (0.0-1.0) ALKALINE PHOSPHATASE 76 U/L (46-116) AST (SGOT) 10 L U/L (15-37) ALT (SGPT) 22 U/L (12-78) . PROGRESS AND PROCEDURES Course of Care: IV NS Invanz 1g IV Vancomycin 25 mg /kg Lab problems with computer so all lab not on T-system. CBC reported as normal. PCT negative CRP negative. Discussed case with on-call health care provider, (Iker). Reviewed test results. Agreed upon treatment plan. Health care provider will see patient in office. Patient/family counseled. Disposition: Discharged. Condition: stable. CLINICAL IMPRESSION Perirectal , pilonidal cyst with sinus tract, abscess and drainage. INSTRUCTIONS Drink plenty of fluids. (Sitz bath 3 times a day Donut pillow to keep pressure off the area. Gauze dressing 4 times a day.). Warnings: Further evaluation is necessary. Prescription Medications: Zofran (orally disintegrating tablets) 4 mg: take 1 orally every 4 hours as needed for nausea. Dispense ten (10). No refill. Augmentin 875 mg: take 1 tablet orally every 12 hours for 7 days. Dispense fourteen (14). No refills. Substitution is permissible. Trimethoprim-Sulfamethoxazole DS: take 1 tablet orally every 12 hours for 7 days. Dispense fourteen (14). No refills. Oxycodone/APAP 5 mg/325 mg: take 1-2 tablets orally every 6 hours as needed for pain. Dispense twenty (20). No refill. Understanding of the discharge instructions verbalized by patient and family. Discharge instructions reviewed with and understanding was verbalized by spouse. Follow-up with: Jason Dong MD, General Surgeon, , [facility], [address] [place] [address] Follow up in three days. Call for the next available appointment. (Electronically signed by Vincenzo Meyers MD 01/25/2017 8:06)
--- NOTE | 2017-01-23 18:23 | ED ORDER SUMMARY ---
..... Patient: SAVANNA MORRELL [facility] VisitID: [id number] [address] [place] [address] 27y, M Registration Date/Time: 01/23/2017 ORDER SHEET Weight: 99.7 kg (stated) Allergies: No Known Drug Allergy GENERAL ORDERS: CBC w Diff Urgent (14:00 01/23/2017 Arnoldo PANTOJA) (Ack 14:03 Hailee) (14:10 JBoardley R.N.) CMP Urgent (14:01/23/2017 Arnoldo PANTOJA) (Ack 14:03 Hialee) (14:10 JBoardley R.N.) PCT (Procalcitonin) Urgent (14:01/23/2017 Arnoldo PANTOJA) (Ack 14:03 Hailee) (14:10 JBoardley R.N.) CT Abd/Pel w Cont (No) (N/A) (go thru rectum anus and orquidea-rectal soft tissue. ) Urgent (14:02 01/23/2017 Arnoldo PANTOJA) (Ack 14:03 Hailee) (14:56 JBoardley R.N.) CRP Urgent (14:04 01/23/2017 Arnoldo PANTOJA) (Ack 14:05 Hailee) (14:10 JBoardley R.N.) MEDICATION ORDERS: IV FLUIDS: IV NS : initial bolus none -, then 250 mL/hr for 4h (NOW); Routine (14:00 01/23/2017 Arnoldo PANTOJA) (Ack 14:03 VALERIYoardley R.N.) (14:10 JBoardley R.N.) Vancomycin IV 25 mg/kg (NOW) (15:40 01/23/2017 Arnoldo PANTOJA) (Ack 15:43 Wendy R.N.) (16:31 Daylin R.N.) Invanz IV 1 gm (NOW) (15:40 01/23/2017 Arnoldo PANTOJA) (Ack 15:43 Wendy R.N.) (16:13 Wendy R.N.) Demerol IV 12.5 mg (NOW) (15:47 01/23/2017 Arnoldo PANTOJA) (Ack 16:01 Daylin R.N.) (16:30 Daylin R.N.) Demerol IV 12.5 mg (NOW) (17:34 01/23/2017 Arnoldo PANTOJA) (17:43 Daylin R.N.) ORDER SHEET NOTES: [Electronically signed by Babar Dong R.N. (18:51 01/23/2017)] [Electronically signed by Vincenzo Meyers MD (08:06 01/25/2017)] [Electronically locked/signed by Babar Dong R.N. (18:51 01/23/2017)]
--- NOTE | 2017-01-25 08:06 | ED MED RECONCILIATION SUMMARY ---
Patient: SAVANNA MORRELL Medication Reconciliation Report [facility] VisitID: [id number] [address] [place] [address] 27y, M Registration Date/Time: 01/23/2017 Weight: 99.7 kg Height/Length: 71 in. BMI: 30.7 ALLERGIES: No Known Drug Allergy The patient's Home Medications are listed below: NONE. The source(s) of the original Home Medication information: Not obtained. The following Medications were given to the patient in the Emergency Department: IV NS IV Fluids bolus 0, then 250 mL/hr, administered: 01/23/2017 2:10:00 PM Invanz [IVP] IVP 1 gm, administered: 01/23/2017 4:13:00 PM Demerol [IVP] IVP 12.5 mg, administered: 01/23/2017 4:30:00 PM Vancomycin [IVPB] IVPB bolus 0, then 2 gm 250 mL/hr, administered: 01/23/2017 4:31:00 PM Demerol [IVP] IVP 12.5 mg, administered: 01/23/2017 5:43:00 PM The following Medications were prescribed to the patient: Zofran (orally disintegrating tablets) 4 mg: take 1 orally every 4 hours as needed for nausea. Dispense ten (10). No refill. -- Vincenzo Meyers MD Augmentin 875 mg: take 1 tablet orally every 12 hours for 7 days. Dispense fourteen (14). No refills. Substitution is permissible. -- Vincenzo Meyers MD Trimethoprim-Sulfamethoxazole DS: take 1 tablet orally every 12 hours for 7 days. Dispense fourteen (14). No refills. -- Vincenzo Meyers MD Oxycodone/APAP 5 mg/325 mg: take 1-2 tablets orally every 6 hours as needed for pain. Dispense twenty (20). No refill. -- Vincenzo Meyers MD
--- NOTE | 2017-01-25 08:06 | ED MAR SUMMARY ---
..... Medication Administration Record [facility] [address] [place] [address] Patient: SAVANNA MORRELL Visit ID: [id number] 27y, M Weight: 99.7 kg Height/Length: 71 in BMI: 30.7 ALLERGIES: No Known Drug Allergy Start 14:10 01/23/2017 Babar Dong R.N., Stop 18:35 01/23/2017 Babar Dong R.N. Medication Administered: IV NS (SALINE), Dose: IV Fluids over 4 hour(s), Rate: 250 mL/hr, Dispensed: 1000 mL bag, Site: #1 left AC. Medication Ordered: IV NS : initial bolus none -, then 250 mL/hr for 4h (NOW); Routine. Given 16:13 01/23/2017 Mariel Nichols R.N. Medication Administered: INVANZ [IVP], Dose: 1 gm IVP over 30 minute(s), Site: #1 left AC. Medication Ordered: Invanz IV 1 gm (NOW). Given 16:30 01/23/2017 Babar Dong R.N. Medication Administered: DEMEROL [IVP] (MEPERIDINE HCL), Dose: 12.5 mg IVP over 2 minute(s), Site: #1 left AC. Medication Ordered: Demerol IV 12.5 mg (NOW). Start 16:31 01/23/2017 Babar Dong R.N., Stop 18:43 01/23/2017 Babar Dong R.N. Medication Administered: VANCOMYCIN [IVPB], Dose: 2 gm IVPB over 2 hour(s), Rate: 250 mL/hr, Dispensed: 500 mL bag, Site: #1 left AC. Medication Ordered: Vancomycin IV 25 mg/kg (NOW). Given 17:43 01/23/2017 Babar Dong R.N. Medication Administered: DEMEROL [IVP] (MEPERIDINE HCL), Dose: 12.5 mg IVP over 2 minute(s), Site: #1 left AC. Medication Ordered: Demerol IV 12.5 mg (NOW).
--- NOTE | 2017-01-25 08:06 | ED MED RECONCILIATION SUMMARY ---
Patient: SAVANNA MORRELL Medication Reconciliation Report [facility] VisitID: [id number] [address] [place] [place] [address] 27y, M Registration Date/Time: 01/23/2017 Weight: 99.7 kg Height/Length: 71 in. BMI: 30.7 ALLERGIES: No Known Drug Allergy The patient's Home Medications are listed below: NONE. The source(s) of the original Home Medication information: Not obtained. The following Medications were given to the patient in the Emergency Department: IV NS IV Fluids bolus 0, then 250 mL/hr, administered: 01/23/2017 2:10:00 PM Invanz [IVP] IVP 1 gm, administered: 01/23/2017 4:13:00 PM Demerol [IVP] IVP 12.5 mg, administered: 01/23/2017 4:30:00 PM Vancomycin [IVPB] IVPB bolus 0, then 2 gm 250 mL/hr, administered: 01/23/2017 4:31:00 PM Demerol [IVP] IVP 12.5 mg, administered: 01/23/2017 5:43:00 PM The following Medications were prescribed to the patient: Zofran (orally disintegrating tablets) 4 mg: take 1 orally every 4 hours as needed for nausea. Dispense ten (10). No refill. -- Vincenzo Meyers MD Augmentin 875 mg: take 1 tablet orally every 12 hours for 7 days. Dispense fourteen (14). No refills. Substitution is permissible. -- Vincenzo Meyers MD Trimethoprim-Sulfamethoxazole DS: take 1 tablet orally every 12 hours for 7 days. Dispense fourteen (14). No refills. -- Vincenzo Meyers MD Oxycodone/APAP 5 mg/325 mg: take 1-2 tablets orally every 6 hours as needed for pain. Dispense twenty (20). No refill. -- Vincenzo Meyers MD
--- NOTE | 2017-01-25 08:06 | ED DISCHARGE INSTRUCTIONS ---
Patient: SAVANNA MORRELL General Instructions [facility] VisitID: [id number] [address] [place] [id number] 27y, M Registration Date/Time: 01/23/2017 Perirectal , pilonidal cyst with sinus tract, abscess and drainage. INSTRUCTIONS Drink plenty of fluids. (Sitz bath 3 times a day Donut pillow to keep pressure off the area. Gauze dressing 4 times a day.). Warnings: Further evaluation is necessary. Prescription Medications: Zofran (orally disintegrating tablets) 4 mg: take 1 orally every 4 hours as needed for nausea. Dispense ten (10). No refill. Augmentin 875 mg: take 1 tablet orally every 12 hours for 7 days. Dispense fourteen (14). No refills. Substitution is permissible. Trimethoprim-Sulfamethoxazole DS: take 1 tablet orally every 12 hours for 7 days. Dispense fourteen (14). No refills. Oxycodone/APAP 5 mg/325 mg: take 1-2 tablets orally every 6 hours as needed for pain. Dispense twenty (20). No refill. Understanding of the discharge instructions verbalized by patient and family. Discharge instructions reviewed with and understanding was verbalized by spouse. Follow-up with: Jason Dong MD, General Surgeon, , [facility], [address] [place] [address] Follow up in three days. Call for the next available appointment. ADDITIONAL INFORMATION Ondansetron Oral disintegrating tablet What is this medicine? ONDANSETRON (on MERY se radha) is used to treat nausea and vomiting caused by chemotherapy. It is also used to prevent or treat nausea and vomiting after surgery. How should I use this medicine? These tablets are made to dissolve in the mouth. Do not try to push the tablet through the foil backing. With dry hands, peel away the foil backing and gently remove the tablet. Place the tablet in the mouth and allow it to dissolve, then swallow. While you may take these tablets with water, it is not necessary to do so. Talk to your summer analyst regarding the use of this medicine in children. Special care may be needed. What side effects may I notice from receiving this medicine? Side effects that you should report to your doctor or health inspector health care facilities as soon as possible: allergic reactions like skin rash, itching or hives, swelling of the face, lips, or tongue breathing problems dizziness fast or irregular heartbeat feeling faint or lightheaded, falls fever and chills swelling of the hands and feet tightness in the chest Side effects that usually do not require medical attention (report to your doctor or health inspector health care facilities if they continue or are bothersome): constipation or diarrhea headache What may interact with this medicine? Do not take this medicine with any of the following medications: -apomorphine -cisapride -dofetilide -dronedarone -pimozide -thioridazine -ziprasidone This medicine may also interact with the following medications: -carbamazepine -phenytoin -rifampicin -tramadol -other medicines that prolong the QT interval (cause an abnormal heart rhythm) What if I miss a dose? If you miss a dose, take it as soon as you can. If it is almost time for your next dose, take only that dose. Do not take double or extra doses. Where should I keep my medicine? Keep out of the reach of children. Store between 2 and 30 degrees C (36 and 86 degrees F). Throw away any unused medicine after the expiration date. What should I tell my health care provider before I take this medicine? They need to know if you have any of these conditions: heart disease history of irregular heartbeat liver disease low levels of magnesium or potassium in the blood an unusual or allergic reaction to ondansetron, granisetron, other medicines, foods, dyes, or preservatives or trying to get breast-feeding What should I watch for while using this medicine? Check with your doctor or health inspector health care facilities as soon as you can if you have any sign of an allergic reaction. Oxycodone Hydrochloride, Acetaminophen Oral tablet What is this medicine? ACETAMINOPHEN; OXYCODONE (a set a TOSHIA milan fen; ox i KOE done) is a pain reliever. It is used to treat mild to moderate pain. How should I use this medicine? Take this medicine by mouth with a full glass of water. Follow the directions on the prescription label. Take your medicine at regular intervals. Do not take your medicine more often than directed. Talk to your summer analyst regarding the use of this medicine in children. Special care may be needed. Patients over 65 years old may have a stronger reaction and need a smaller dose. What side effects may I notice from receiving this medicine? Side effects that you should report to your doctor or health inspector health care facilities as soon as possible: allergic reactions like skin rash, itching or hives, swelling of the face, lips, or tongue breathing difficulties, wheezing confusion light headedness or fainting spells severe stomach pain yellowing of the skin or the whites of the eyes Side effects that usually do not require medical attention (report to your doctor or health inspector health care facilities if they continue or are bothersome): dizziness drowsiness nausea vomiting What may interact with this medicine? alcohol antihistamines barbiturates like amobarbital, butalbital, butabarbital, methohexital, pentobarbital, phenobarbital, thiopental, and secobarbital benztropine drugs for bladder problems like solifenacin, trospium, oxybutynin, tolterodine, hyoscyamine, and methscopolamine drugs for breathing problems like ipratropium and tiotropium drugs for certain stomach or intestine problems like propantheline, homatropine methylbromide, glycopyrrolate, atropine, belladonna, and dicyclomine general anesthetics like etomidate, ketamine, nitrous oxide, propofol, desflurane, enflurane, halothane, isoflurane, and sevoflurane medicines for depression, anxiety, or psychotic disturbances medicines for sleep muscle relaxants naltrexone narcotic medicines (opiates) for pain phenothiazines like perphenazine, thioridazine, chlorpromazine, mesoridazine, fluphenazine, prochlorperazine, promazine, and trifluoperazine scopolamine tramadol trihexyphenidyl What if I miss a dose? If you miss a dose, take it as soon as you can. If it is almost time for your next dose, take only that dose. Do not take double or extra doses. Where should I keep my medicine? Keep out of the reach of children. This medicine can be abused. Keep your medicine in a safe place to protect it from theft. Do not share this medicine with anyone. Selling or giving away this medicine is dangerous and against the law. Store at room temperature between 20 and 25 degrees C (68 and 77 degrees F). Keep container tightly closed. Protect from light. This medicine may cause accidental overdose and if it is taken by other adults, children, or pets. Flush any unused medicine down the toilet to reduce the chance of harm. Do not use the medicine after the expiration date. What should I tell my health care provider before I take this medicine? They need to know if you have any of these conditions: brain tumor Crohn's disease, inflammatory bowel disease, or ulcerative colitis drink more than 3 alcohol containing drinks per day drug abuse or addiction head injury heart or circulation problems kidney disease or problems going to the bathroom liver disease lung disease, asthma, or breathing problems an unusual or allergic reaction to acetaminophen, oxycodone, other opioid analgesics, other medicines, foods, dyes, or preservatives or trying to get breast-feeding What should I watch for while using this medicine? Tell your doctor or health inspector health care facilities if your pain does not go away, if it gets worse, or if you have new or a different type of pain. You may develop tolerance to the medicine. Tolerance means that you will need a higher dose of the medication for pain relief. Tolerance is normal and is expected if you take this medicine for a long time. Do not suddenly stop taking your medicine because you may develop a severe reaction. Your body becomes used to the medicine. This does NOT mean you are addicted. Addiction is a behavior related to getting and using a drug for a non-medical reason. If you have pain, you have a medical reason to take pain medicine. Your doctor will tell you how much medicine to take. If your doctor wants you to stop the medicine, the dose will be slowly lowered over time to avoid any side effects. You may get drowsy or dizzy. Do not drive, use machinery, or do anything that needs mental alertness until you know how this medicine affects you. Do not stand or sit up quickly, especially if you are an older patient. This reduces the risk of dizzy or fainting spells. Alcohol may interfere with the effect of this medicine. Avoid alcoholic drinks. There are different types of narcotic medicines (opiates) for pain. If you take more than one type at the same time, you may have more side effects. Give your health care provider a list of all medicines you use. Your doctor will tell you how much medicine to take. Do not take more medicine than directed. Call emergency for help if you have problems breathing. The medicine will cause constipation. Try to have a bowel movement at least every 2 to 3 days. If you do not have a bowel movement for 3 days, call your doctor or health inspector health care facilities. Do not take Tylenol (acetaminophen) or medicines that have acetaminophen with this medicine. Too much acetaminophen can be very dangerous. Many nonprescription medicines contain acetaminophen. Always read the labels carefully to avoid taking more acetaminophen. You have been given the following additional information: Ondansetron Oral disintegrating tablet Oxycodone Hydrochloride, Acetaminophen Oral tablet (Electronically signed by Vincenzo Meyers MD 01/25/2017 8:06)
--- NOTE | 2017-01-25 08:06 | ED MAR SUMMARY ---
..... Medication Administration Record [facility] [address] [place] [address] Patient: SAVANNA MORRELL Visit ID: [id number] 27y, M Weight: 99.7 kg Height/Length: 71 in BMI: 30.7 ALLERGIES: No Known Drug Allergy Start 14:10 01/23/2017 Babar Dong R.N., Stop 18:35 01/23/2017 Babar Dong R.N. Medication Administered: IV NS (SALINE), Dose: IV Fluids over 4 hour(s), Rate: 250 mL/hr, Dispensed: 1000 mL bag, Site: #1 left AC. Medication Ordered: IV NS : initial bolus none -, then 250 mL/hr for 4h (NOW); Routine. Given 16:13 01/23/2017 Mariel Nichols R.N. Medication Administered: INVANZ [IVP], Dose: 1 gm IVP over 30 minute(s), Site: #1 left AC. Medication Ordered: Invanz IV 1 gm (NOW). Given 16:30 01/23/2017 Babar Dong R.N. Medication Administered: DEMEROL [IVP] (MEPERIDINE HCL), Dose: 12.5 mg IVP over 2 minute(s), Site: #1 left AC. Medication Ordered: Demerol IV 12.5 mg (NOW). Start 16:31 01/23/2017 Babar Dong R.N., Stop 18:43 01/23/2017 Babar Dong R.N. Medication Administered: VANCOMYCIN [IVPB], Dose: 2 gm IVPB over 2 hour(s), Rate: 250 mL/hr, Dispensed: 500 mL bag, Site: #1 left AC. Medication Ordered: Vancomycin IV 25 mg/kg (NOW). Given 17:43 01/23/2017 Babar Dong R.N. Medication Administered: DEMEROL [IVP] (MEPERIDINE HCL), Dose: 12.5 mg IVP over 2 minute(s), Site: #1 left AC. Medication Ordered: Demerol IV 12.5 mg (NOW).
--- NOTE | 2017-01-25 08:06 | ED DISCHARGE INSTRUCTIONS ---
Patient: SAVANNA MORRELL General Instructions [facility] VisitID: [id number] [address] [place], [place] [id number] 27y, M Registration Date/Time: 01/23/2017 Perirectal , pilonidal cyst with sinus tract, abscess and drainage. INSTRUCTIONS Drink plenty of fluids. (Sitz bath 3 times a day Donut pillow to keep pressure off the area. Gauze dressing 4 times a day.). Warnings: Further evaluation is necessary. Prescription Medications: Zofran (orally disintegrating tablets) 4 mg: take 1 orally every 4 hours as needed for nausea. Dispense ten (10). No refill. Augmentin 875 mg: take 1 tablet orally every 12 hours for 7 days. Dispense fourteen (14). No refills. Substitution is permissible. Trimethoprim-Sulfamethoxazole DS: take 1 tablet orally every 12 hours for 7 days. Dispense fourteen (14). No refills. Oxycodone/APAP 5 mg/325 mg: take 1-2 tablets orally every 6 hours as needed for pain. Dispense twenty (20). No refill. Understanding of the discharge instructions verbalized by patient and family. Discharge instructions reviewed with and understanding was verbalized by spouse. Follow-up with: Jason Dong MD, General Surgeon, , [facility], [address] [place] [address] Follow up in three days. Call for the next available appointment. ADDITIONAL INFORMATION Ondansetron Oral disintegrating tablet What is this medicine? ONDANSETRON (on MERY se radha) is used to treat nausea and vomiting caused by chemotherapy. It is also used to prevent or treat nausea and vomiting after surgery. How should I use this medicine? These tablets are made to dissolve in the mouth. Do not try to push the tablet through the foil backing. With dry hands, peel away the foil backing and gently remove the tablet. Place the tablet in the mouth and allow it to dissolve, then swallow. While you may take these tablets with water, it is not necessary to do so. Talk to your respiratory scientist regarding the use of this medicine in children. Special care may be needed. What side effects may I notice from receiving this medicine? Side effects that you should report to your doctor or health day care home mother as soon as possible: allergic reactions like skin rash, itching or hives, swelling of the face, lips, or tongue breathing problems dizziness fast or irregular heartbeat feeling faint or lightheaded, falls fever and chills swelling of the hands and feet tightness in the chest Side effects that usually do not require medical attention (report to your doctor or health day care home mother if they continue or are bothersome): constipation or diarrhea headache What may interact with this medicine? Do not take this medicine with any of the following medications: -apomorphine -cisapride -dofetilide -dronedarone -pimozide -thioridazine -ziprasidone This medicine may also interact with the following medications: -carbamazepine -phenytoin -rifampicin -tramadol -other medicines that prolong the QT interval (cause an abnormal heart rhythm) What if I miss a dose? If you miss a dose, take it as soon as you can. If it is almost time for your next dose, take only that dose. Do not take double or extra doses. Where should I keep my medicine? Keep out of the reach of children. Store between 2 and 30 degrees C (36 and 86 degrees F). Throw away any unused medicine after the expiration date. What should I tell my health care provider before I take this medicine? They need to know if you have any of these conditions: heart disease history of irregular heartbeat liver disease low levels of magnesium or potassium in the blood an unusual or allergic reaction to ondansetron, granisetron, other medicines, foods, dyes, or preservatives or trying to get breast-feeding What should I watch for while using this medicine? Check with your doctor or health day care home mother as soon as you can if you have any sign of an allergic reaction. Oxycodone Hydrochloride, Acetaminophen Oral tablet What is this medicine? ACETAMINOPHEN; OXYCODONE (a set a TOSHIA milan fen; ox i KOE done) is a pain reliever. It is used to treat mild to moderate pain. How should I use this medicine? Take this medicine by mouth with a full glass of water. Follow the directions on the prescription label. Take your medicine at regular intervals. Do not take your medicine more often than directed. Talk to your respiratory scientist regarding the use of this medicine in children. Special care may be needed. Patients over 65 years old may have a stronger reaction and need a smaller dose. What side effects may I notice from receiving this medicine? Side effects that you should report to your doctor or health day care home mother as soon as possible: allergic reactions like skin rash, itching or hives, swelling of the face, lips, or tongue breathing difficulties, wheezing confusion light headedness or fainting spells severe stomach pain yellowing of the skin or the whites of the eyes Side effects that usually do not require medical attention (report to your doctor or health day care home mother if they continue or are bothersome): dizziness drowsiness nausea vomiting What may interact with this medicine? alcohol antihistamines barbiturates like amobarbital, butalbital, butabarbital, methohexital, pentobarbital, phenobarbital, thiopental, and secobarbital benztropine drugs for bladder problems like solifenacin, trospium, oxybutynin, tolterodine, hyoscyamine, and methscopolamine drugs for breathing problems like ipratropium and tiotropium drugs for certain stomach or intestine problems like propantheline, homatropine methylbromide, glycopyrrolate, atropine, belladonna, and dicyclomine general anesthetics like etomidate, ketamine, nitrous oxide, propofol, desflurane, enflurane, halothane, isoflurane, and sevoflurane medicines for depression, anxiety, or psychotic disturbances medicines for sleep muscle relaxants naltrexone narcotic medicines (opiates) for pain phenothiazines like perphenazine, thioridazine, chlorpromazine, mesoridazine, fluphenazine, prochlorperazine, promazine, and trifluoperazine scopolamine tramadol trihexyphenidyl What if I miss a dose? If you miss a dose, take it as soon as you can. If it is almost time for your next dose, take only that dose. Do not take double or extra doses. Where should I keep my medicine? Keep out of the reach of children. This medicine can be abused. Keep your medicine in a safe place to protect it from theft. Do not share this medicine with anyone. Selling or giving away this medicine is dangerous and against the law. Store at room temperature between 20 and 25 degrees C (68 and 77 degrees F). Keep container tightly closed. Protect from light. This medicine may cause accidental overdose and if it is taken by other adults, children, or pets. Flush any unused medicine down the toilet to reduce the chance of harm. Do not use the medicine after the expiration date. What should I tell my health care provider before I take this medicine? They need to know if you have any of these conditions: brain tumor Crohn's disease, inflammatory bowel disease, or ulcerative colitis drink more than 3 alcohol containing drinks per day drug abuse or addiction head injury heart or circulation problems kidney disease or problems going to the bathroom liver disease lung disease, asthma, or breathing problems an unusual or allergic reaction to acetaminophen, oxycodone, other opioid analgesics, other medicines, foods, dyes, or preservatives or trying to get breast-feeding What should I watch for while using this medicine? Tell your doctor or health day care home mother if your pain does not go away, if it gets worse, or if you have new or a different type of pain. You may develop tolerance to the medicine. Tolerance means that you will need a higher dose of the medication for pain relief. Tolerance is normal and is expected if you take this medicine for a long time. Do not suddenly stop taking your medicine because you may develop a severe reaction. Your body becomes used to the medicine. This does NOT mean you are addicted. Addiction is a behavior related to getting and using a drug for a non-medical reason. If you have pain, you have a medical reason to take pain medicine. Your doctor will tell you how much medicine to take. If your doctor wants you to stop the medicine, the dose will be slowly lowered over time to avoid any side effects. You may get drowsy or dizzy. Do not drive, use machinery, or do anything that needs mental alertness until you know how this medicine affects you. Do not stand or sit up quickly, especially if you are an older patient. This reduces the risk of dizzy or fainting spells. Alcohol may interfere with the effect of this medicine. Avoid alcoholic drinks. There are different types of narcotic medicines (opiates) for pain. If you take more than one type at the same time, you may have more side effects. Give your health care provider a list of all medicines you use. Your doctor will tell you how much medicine to take. Do not take more medicine than directed. Call emergency for help if you have problems breathing. The medicine will cause constipation. Try to have a bowel movement at least every 2 to 3 days. If you do not have a bowel movement for 3 days, call your doctor or health day care home mother. Do not take Tylenol (acetaminophen) or medicines that have acetaminophen with this medicine. Too much acetaminophen can be very dangerous. Many nonprescription medicines contain acetaminophen. Always read the labels carefully to avoid taking more acetaminophen. You have been given the following additional information: Ondansetron Oral disintegrating tablet Oxycodone Hydrochloride, Acetaminophen Oral tablet (Electronically signed by Vincenzo Meyers MD 01/25/2017 8:06)
== END 2017-01-23 18:45 | disposition home or self-care (01) ==
LOC: ED SRH 13:48
DX: L05.01 Pilonidal cyst with abscess (principal); F17.210 Nicotine dependence, cigarettes, uncomplicated
CPT/HCPCS: 90100